=== PATIENT | female | born 1970 | race Caucasian/White ===

== ENCOUNTER 2020-09-13 10:10 | Inpatient (IN) | payer MEDICAID ==
[~2020-09-13] VITALS: Ht 167.6 cm; Wt 103.6 kg
[~2020-09-13 10:10] MED LIST: ARIP5TAB36 PO; BACL10TA PO; BENZ1TAB2 PO; BUPR300T28 PO; BUSP15TA60 PO; CONJ.6252 PO; ESCI-34 PO; FING1CAP PO; OXYB10TA14 PO; TOPI100T68 PO
[2020-09-13] MEDS ORDERED: PREGABALIN CAPSULE 75 MG CAP PO ONE (11:00)
[2020-09-13] MEDS ORDERED: CELECOXIB 100 MG CAP PO ONE (11:00)
[2020-09-13] MEDS ORDERED: ACETAMINOPHEN IV 1000 MG/100ML (10MG/ML) IV ONE (11:00)
[2020-09-13] MEDS ORDERED: ceFAZolin 1GM/50ML 100 ML IV ONE (11:04)
[2020-09-13] MEDS ORDERED: BUPIVACAINE 0.25% INJ 50ML VIAL ONE (12:07)
[2020-09-13] MEDS ORDERED: KETOROLAC TROMETH 30 MG/ML 1ML VIAL ONE (12:09)
[2020-09-13] MEDS ORDERED: VANCOMYCIN HCL 1000 MG VL ONE (12:09)
[2020-09-13] MEDS ORDERED: MORPHINE SULF(PF) 0.5MG/ML 10ML VIAL ONE (12:17)
[2020-09-13] MEDS ORDERED: HYDROmorphone HCL 2 MG/ML VL ONE (12:54)
[2020-09-13] MEDS ORDERED: TRANEXAMIC ACID 1,000 mg/10ml INJ VIAL IV ONE (13:21)
[2020-09-13] MEDS ORDERED: PROPOFOL 10 MG/ML 20 ML IV ONE ×2 (13:56→13:58)
[2020-09-13] MEDS ORDERED: ONDANSETRON HCL 4 MG/2 ML VIAL ONE (13:56)
[2020-09-13] MEDS ORDERED: DexAMETHasone SOD PHOS 10MG/1ML VIAL INJ ONE (13:56)
[2020-09-13] MEDS ORDERED: KETOROLAC TROMETH 60MG/2ML VIAL ONE (13:56)
[2020-09-13] MEDS: LACTATED RINGER'S 1,000 ML IV SCH (15:00)
[2020-09-13] MEDS: ceFAZolin 1GM/50ML 50 ML IV SCH ×2 (15:00→21:12)
[2020-09-13] MEDS ORDERED: HYDROmorphone HCL 2 MG/ML VL IV PRN ×3 (15:00→15:30)
[2020-09-13] MEDS ORDERED: ACETAMINOPHEN 325 MG TAB PO PRN (15:00)
[2020-09-13] MEDS ORDERED: ONDANSETRON HCL 4 MG/2 ML VIAL IV PRN ×2 (15:00→15:30)
[2020-09-13] MEDS ORDERED: hydrALAZINE HCL 20 MG/ML VL IV PRN (15:30)
[2020-09-13] MEDS ORDERED: LABETALOL HCL 5 MG/ML 4ML SYRINGE IV PRN (15:30)
[2020-09-13] MEDS ORDERED: METOCLOPRAMIDE HCL 5MG/ml INJ 2ml VIAL IV PRN (15:30)
[2020-09-13] MEDS ORDERED: KETOROLAC TROMETH 30 MG/ML 1ML VIAL IV ONE (15:30)
[2020-09-13] MEDS: LABETALOL HCL 5 MG/ML 4ML SYRINGE IV ONE ×2 (15:35→16:00)
[2020-09-13] MEDS: hydrALAZINE HCL 20 MG/ML VL IV PRN ×3 (15:45→16:25)
[2020-09-13] MEDS: LABETALOL HCL 5 MG/ML 4ML SYRINGE IV PRN ×2 (18:00→18:10)
[2020-09-13] MEDS ORDERED: KETOROLAC TROMETH 30 MG/ML 1ML VIAL IV PRN (18:15)
[2020-09-13 20:00] VITALS: BP 127/84
[2020-09-13 22:00] VITALS: BP 127/84
[2020-09-13] MEDS: DOCUSATE SOD 100 MG CAP PO SCH (22:00)
[2020-09-14] MEDS: LACTATED RINGER'S 1,000 ML IV SCH (01:00)
[2020-09-14] MEDS: ceFAZolin 1GM/50ML 50 ML IV SCH (03:01)
[2020-09-14 05:46] VITALS: BP 148/95
[2020-09-14 08:01] LABS: Basophils # (auto) 0 10 ^3/uL (0-0.2); Basophils % (auto) 0.3 % (0.0-2.0); Eosinophils # (auto) 0 10 ^3/uL (0-0.8); Hematocrit 36.8 % (36.0-46.0); Hemoglobin 12.3 g/dL (12.2-16.2); Lymphocytes # (auto) 0.4 10 ^3/uL (0.4-5.4); Lymphocytes % (auto) 2.9 % (10.0-50.0); Mean Corpuscular Hemoglobin 29.9 pg (28.0-32.0); Mean Corpuscular Hgb Conc. 33.5 g/dL (32.0-36.0); Mean Corpuscular Volume 89.3 fL (80.0-100.0); Monocytes # (auto) 2.3 10 ^3/uL (0-1.3); Monocytes % (auto) 15.3 % (0.0-12.0); Neutrophils # (auto) 12.1 10 ^3/uL (1.6-8.6); Neutrophils % (auto) 81.5 % (37.0-80.0); Nucleated Red Blood Cells % 0.1 %; Platelet Count (auto) 281 10^3/uL (140-450); Red Blood Cells 4.13 10^6/uL (4.0-5.20); Red Cell Distribution Width 13.2 % (11.8-14.3); White Blood Cell 14.9 10^3/uL (4.4-10.8)
[2020-09-14 08:22] LABS: Albumin 3.4 g/dL (3.4-5.0); Calcium 8.3 mg/dL (8.5-10.1); Potassium 3.6 mmol/L (3.5-5.1)
[2020-09-14 08:28] LABS: Bilirubin, Total 0.6 mg/dL (0.2-1.0); Total Protein 6.5 g/dL (6.4-8.2)
[2020-09-14 08:50] VITALS: BP 156/85
[2020-09-14] MEDS: DOCUSATE SOD 100 MG CAP PO SCH (08:51)
[2020-09-14] MEDS: HYDROcodone-ACET 5/325MG TAB PO PRN ×2 (08:51→14:32)
[2020-09-14] MEDS ORDERED: ENOXAPARIN SOD 40 MG/0.4 ML SYRINGE SC SCH (10:00)
[2020-09-14] MEDS ORDERED: NITROGLYCERIN 0.4 MG SL TAB SL PRN (10:30)
[2020-09-14] MEDS ORDERED: MORPHINE SULF INJ 2 MG/ML SYRINGE 1ML IV PRN (10:30)
[2020-09-14 12:44] VITALS: BP 152/76
== END 2020-09-14 16:10 | disposition home or self-care (01) | DRG 302 ==
LOC: OVERFLOW 10:10 → EDSTATUS 12:00 → TELE-WESTW 18:41 → WEST WING 18:53
PROVIDERS: ADMIT Orthopaedic Surgery; ATTEND Internal Medicine
PROC: 8E0YXBZ Computer Assisted Procedure of Lower Extremity (ICD-10-PCS; 2020-09-13)
PROC: 0SRC0L9 Replacement of Right Knee Joint with Medial Unicondylar Synthetic Substitute, Cemented, Open Approach (ICD-10-PCS; principal; 2020-09-13 13:21)
DX: M17.11 Unilateral primary osteoarthritis, right knee (principal); E66.01 Morbid (severe) obesity due to excess calories; F32.9 Major depressive disorder, single episode, unspecified; F41.9 Anxiety disorder, unspecified; Z20.822 Contact with and (suspected) exposure to COVID-19; D72.829 Elevated white blood cell count, unspecified; Z68.36 Body mass index [BMI] 36.0-36.9, adult; Z82.0 Family history of epilepsy and other diseases of the nervous system; Z82.49 Family history of ischemic heart disease and other diseases of the circulatory system; Z82.3 Family history of stroke
CPT/HCPCS: 36415; 73562; 80053; 84702; 85025; 86850; 86900; 86901; G0378; J0131; J0690; J1100; J1885; J2405; J2704; J3490

== ENCOUNTER 2021-09-23 14:42 | Emergency (ER) | payer MEDICAID ==
[~2021-09-23] VITALS: Ht 167.6 cm; Wt 74.8 kg
[~2021-09-23 14:42] MED LIST changes: +ENO40SY SC; +HYDR-4902 PO
[2021-09-23 16:15] LABS: Basophils # (auto) 0.1 10 ^3/uL (0-0.2); Basophils % (auto) 0.7 % (0.0-2.0); Eosinophils # (auto) 0.1 10 ^3/uL (0-0.8); Eosinophils % (auto) 1.3 % (0.0-7.0); Hematocrit 37.1 % (36.0-46.0); Hemoglobin 12.5 g/dL (12.2-16.2); Lymphocytes # (auto) 0.6 10 ^3/uL (0.4-5.4); Lymphocytes % (auto) 7.8 % (10.0-50.0); Mean Corpuscular Hemoglobin 29.6 pg (28.0-32.0); Mean Corpuscular Hgb Conc. 33.6 g/dL (32.0-36.0); Mean Corpuscular Volume 88.1 fL (80.0-100.0); Monocytes % (auto) 13.8 % (0.0-12.0); Neutrophils # (auto) 5.8 10 ^3/uL (1.6-8.6); Neutrophils % (auto) 76.4 % (37.0-80.0); Nucleated Red Blood Cells % 0.1 %; Red Blood Cells 4.21 10^6/uL (4.0-5.20); Red Cell Distribution Width 15.2 % (11.8-14.3); White Blood Cell 7.6 10^3/uL (4.4-10.8)
[2021-09-23 16:31] LABS: Albumin 2.8 g/dL (3.4-5.0); BUN/Creatinine Ratio 9.1; Calcium 9.4 mg/dL (8.5-10.1); Potassium 3.5 mmol/L (3.5-5.1)
[2021-09-23 16:35] LABS: Bilirubin, Total 9.9 mg/dL (0.2-1.0); Total Protein 7.3 g/dL (6.4-8.2)
[2021-09-23] MEDS ORDERED: IOHEXOL 300 MG/ML 100ML BOTTLE IJ ONE (20:57)
[2021-09-23] MEDS ORDERED: KETOROLAC TROMETH 30 MG/ML 1ML VIAL IV ONE (22:15)
[2021-09-23 23:11] LABS: Urine Bacteria MOD /hpf (None Seen); Urine Blood Negative /uL (Negative); Urine Mucus FEW (None Seen); Urine WBC 4 /hpf (0 - 5)
[2021-09-23 23:18] LABS: Urine Specific Gravity > 1.055 (1.001-1.035)
[2021-09-24] MEDS ORDERED: LORazepam 0.5 MG TAB PO ONE (03:45)
[2021-09-24 23:29] VITALS: BP 129/74
== END 2021-09-24 23:44 | disposition short-term general hospital (02) ==
LOC: ER 14:43
DX: K86.9 Disease of pancreas, unspecified (principal); R17 Unspecified jaundice; K80.20 Calculus of gallbladder without cholecystitis without obstruction; E80.6 Other disorders of bilirubin metabolism; I10 Essential (primary) hypertension; F31.9 Bipolar disorder, unspecified; C16.1 Malignant neoplasm of fundus of stomach; E46 Unspecified protein-calorie malnutrition; R74.8 Abnormal levels of other serum enzymes; Z68.26 Body mass index [BMI] 26.0-26.9, adult; Z90.89 Acquired absence of other organs; Z79.899 Other long term (current) drug therapy; Z20.822 Contact with and (suspected) exposure to COVID-19
CPT/HCPCS: 36415; 71045; 74177; 76705; 80053; 81001; 83880; 84484; 85025; 87426; 96374; 99285; J1885; Q9967

== ENCOUNTER 2021-11-14 09:49 | Inpatient (IN) | payer MEDICAID ==
[~2021-11-14] VITALS: Ht 162.6 cm; Wt 70.0 kg
[2021-11-14 11:30] LABS: White Blood Cell 5.3 10^3/uL (4.4-10.8)
[2021-11-14 11:31] LABS: Albumin 2.4 g/dL (3.4-5.0); Calcium 9.1 mg/dL (8.5-10.1); Potassium 3.7 mmol/L (3.5-5.1)
[2021-11-14 11:32] LABS: Hematocrit 28.4 % (36.0-46.0); Hemoglobin 9.6 g/dL (12.2-16.2); Mean Corpuscular Hgb Conc. 33.7 g/dL (32.0-36.0); Mean Corpuscular Volume 77.2 fL (80.0-100.0); Red Blood Cells 3.67 10^6/uL (4.0-5.20); Red Cell Distribution Width 16.6 % (11.8-14.3)
[2021-11-14 11:34] LABS: BUN/Creatinine Ratio 11.9; Bilirubin, Total 0.6 mg/dL (0.2-1.0); Total Protein 7.7 g/dL (6.4-8.2)
[2021-11-14 11:49] LABS: Band Neutrophils % (manual) 0; Basophils % (manual) 0 (0.0-2.0); Blast Cells 0; Metamyelocytes % 0; Myelocytes % 0; Promyelocytes % 0; Reactive Lymphocytes 0
[2021-11-14 14:49] LABS: Eosinophils % (manual) 3 (0-7); Lymphocytes % (manual) 8 (10.0-50.0); Monocytes % (manual) 15 (0-12)
[2021-11-14] MEDS ORDERED: LORazepam 2MG/ML-1ML VIAL IV ONE (17:15)
[2021-11-14] MEDS: SODIUM CHLORIDE 0.9% 1,000 ML IV SCH (17:30)
[2021-11-14] MEDS ORDERED: MORPHINE SULFATE INJECTION 2 MG/ML SYRG IV PRN (17:30)
[2021-11-14] MEDS ORDERED: ONDANSETRON HCL 4 MG/2 ML VIAL IV PRN (17:30)
[2021-11-14] MEDS ORDERED: TEMAZEPAM 15 MG CAP PO PRN (17:30)
[2021-11-14] MEDS ORDERED: NITROGLYCERIN 0.4 MG SL TAB SL PRN (17:30)
[2021-11-14] MEDS ORDERED: HYDROcodone-ACET 5/325MG TAB PO PRN (20:15)
[2021-11-14 22:00] VITALS: BP 127/80
[2021-11-14] MEDS ORDERED: ASCORBIC ACID 500 MG TAB PO SCH (22:00)
[2021-11-14] MEDS: busPIRone HCL 10 MG TAB PO SCH (22:03)
[2021-11-14] MEDS: OXYBUTYNIN CHL 5 MG TAB PO SCH (22:04)
[2021-11-14] MEDS: BACLOFEN 10 MG TAB PO SCH (22:05)
[2021-11-14] MEDS: BENZTROPINE MESY 0.5 MG TAB PO SCH (22:05)
[2021-11-14 22:12] VITALS: BP 127/86
[2021-11-15 05:50] VITALS: BP 146/90
[2021-11-15] MEDS: BACLOFEN 10 MG TAB PO SCH ×3 (06:11→22:17)
[2021-11-15] MEDS: buPROPion HCL 75 MG TAB PO SCH ×2 (06:12→18:29)
[2021-11-15] MEDS: MORPHINE SULFATE INJECTION 2 MG/ML SYRG IV PRN ×4 (07:03→22:17)
[2021-11-15 07:08] LABS: Hemoglobin 8.5 g/dL (12.2-16.2); White Blood Cell 4.8 10^3/uL (4.4-10.8)
[2021-11-15 07:09] LABS: Calcium 8.3 mg/dL (8.5-10.1); Potassium 3.3 mmol/L (3.5-5.1)
[2021-11-15 07:11] LABS: Hematocrit 25.3 % (36.0-46.0); Mean Corpuscular Hgb Conc. 33.5 g/dL (32.0-36.0); Mean Corpuscular Volume 77.7 fL (80.0-100.0); Red Blood Cells 3.26 10^6/uL (4.0-5.20); Red Cell Distribution Width 16.6 % (11.8-14.3)
[2021-11-15 07:14] LABS: Albumin 2.2 g/dL (3.4-5.0); BUN/Creatinine Ratio 16.4; Bilirubin, Total 0.5 mg/dL (0.2-1.0); Total Protein 6.6 g/dL (6.4-8.2)
[2021-11-15 07:17] LABS: Basophils % (manual) 0 (0.0-2.0); Blast Cells 0; Myelocytes % 0; Promyelocytes % 0; Reactive Lymphocytes 0
[2021-11-15 08:00] VITALS: BP 149/85
[2021-11-15] MEDS: OXYBUTYNIN CHL 5 MG TAB PO SCH ×2 (09:42→22:17)
[2021-11-15] MEDS: busPIRone HCL 10 MG TAB PO SCH ×2 (09:42→22:18)
[2021-11-15] MEDS: ZINC SULFATE 220mg CAP or TAB PO SCH (09:42)
[2021-11-15] MEDS: CITALOPRAM HYDROBR 20 MG TAB PO SCH (09:42)
[2021-11-15] MEDS: BENZTROPINE MESY 0.5 MG TAB PO SCH ×2 (09:42→22:19)
[2021-11-15] MEDS: ENOXAPARIN SOD 30 MG/0.3 ML SYRINGE SC SCH (09:43)
[2021-11-15] MEDS: SODIUM CHLORIDE 0.9% 1,000 ML IV SCH (09:43)
[2021-11-15] MEDS: POLYETHYLENE GLYCOL 17 GM PWDR PO SCH (09:43)
[2021-11-15] MEDS: ASCORBIC ACID 500 MG TAB PO SCH (09:43)
[2021-11-15] MEDS: TOPIRAMATE 100 MG TAB PO SCH ×2 (09:43→09:53)
[2021-11-15 09:56] LABS: Band Neutrophils % (manual) 2; Eosinophils % (manual) 4 (0-7); Lymphocytes % (manual) 6 (10.0-50.0); Metamyelocytes % 2; Monocytes % (manual) 15 (0-12)
[2021-11-15 12:00] VITALS: BP 158/87
[2021-11-15] MEDS ORDERED: POTASSIUM CHL 20 Meq TABLET PO ONE (12:15)
[2021-11-15] MEDS: FERROUS SULFATE 325mg EC TAB PO SCH (14:18)
[2021-11-15 16:00] VITALS: BP 150/82
[2021-11-15 21:36] VITALS: BP 148/89
[2021-11-16] MEDS: SODIUM CHLORIDE 0.9% 1,000 ML IV SCH (03:55)
[2021-11-16 05:26] VITALS: BP 164/84
[2021-11-16] MEDS: BACLOFEN 10 MG TAB PO SCH ×2 (06:14→13:53)
[2021-11-16] MEDS: buPROPion HCL 75 MG TAB PO SCH (06:14)
[2021-11-16] MEDS: MORPHINE SULFATE INJECTION 2 MG/ML SYRG IV PRN ×2 (06:21→13:54)
[2021-11-16 09:00] VITALS: BP 146/102
[2021-11-16] MEDS: ZINC SULFATE 220mg CAP or TAB PO SCH (09:42)
[2021-11-16] MEDS: CITALOPRAM HYDROBR 20 MG TAB PO SCH (09:42)
[2021-11-16] MEDS: busPIRone HCL 10 MG TAB PO SCH (09:42)
[2021-11-16] MEDS: TOPIRAMATE 100 MG TAB PO SCH (09:43)
[2021-11-16] MEDS: BENZTROPINE MESY 0.5 MG TAB PO SCH (09:43)
[2021-11-16] MEDS: ENOXAPARIN SOD 30 MG/0.3 ML SYRINGE SC SCH (09:43)
[2021-11-16] MEDS: ASCORBIC ACID 500 MG TAB PO SCH (09:43)
[2021-11-16] MEDS: POLYETHYLENE GLYCOL 17 GM PWDR PO SCH (09:43)
[2021-11-16] MEDS: OXYBUTYNIN CHL 5 MG TAB PO SCH (09:43)
[2021-11-16 12:31] VITALS: BP 146/102
[2021-11-16 13:00] VITALS: BP 160/92
[2021-11-16] MEDS: FERROUS SULFATE 325mg EC TAB PO SCH (13:53)
[2021-11-16 14:24] VITALS: BP 152/88
== END 2021-11-16 16:00 | disposition home or self-care (01) | DRG 351 ==
LOC: ER 09:49 → EDSEX 09:49 → EDBD 09:49 → TELE 17:27 → CENTRAL 21:15
PROVIDERS: ADMIT Emergency Medicine; ATTEND Hospitalist
DX: M17.12 Unilateral primary osteoarthritis, left knee (principal); E43 Unspecified severe protein-calorie malnutrition; D50.9 Iron deficiency anemia, unspecified; F20.9 Schizophrenia, unspecified; G35 Multiple sclerosis; I10 Essential (primary) hypertension; I25.10 Atherosclerotic heart disease of native coronary artery without angina pectoris; M41.9 Scoliosis, unspecified; Z20.822 Contact with and (suspected) exposure to COVID-19; Z87.11 Personal history of peptic ulcer disease; Z82.3 Family history of stroke; Z82.49 Family history of ischemic heart disease and other diseases of the circulatory system; Z82.0 Family history of epilepsy and other diseases of the nervous system; Z80.3 Family history of malignant neoplasm of breast; Z68.26 Body mass index [BMI] 26.0-26.9, adult; Z85.72 Personal history of non-Hodgkin lymphomas
CPT/HCPCS: 36415; 72170; 73590; 73700; 80053; 84484; 85007; 85027; 93970; 96361; 96374; G0378